=== PATIENT | female | born 1940 | race Caucasian/White ===

== ENCOUNTER 2017-01-19 02:27 | Inpatient (IN) | payer BC ==
--- NOTE | ~2017-01-19 | CN ---
Consultation Report [facility] [address] [place]. [address] NAME: JIM VARGAS : 38 STATUS : ADM IN PAT#: [id number] AGE: 76 ADM/REG DATE : 01/19/17 MR#: [id number] REPORT SERV DATE: 01/19/17 DICTATED BY: MAYCOL REYES DATE: 01/19/17 REPORT STATUS : Draft TRANSCRIBED BY: MODL DATE: 01/19/17 NEW CONSULT DATE OF CONSULTATION: HISTORY OF PRESENT ILLNESS: This is a 76-year-old female, who was transferred to [facility] from [facility] accepted by Cardiology for elevated troponin. There have been no reports of chest pain. Chief complaint coming in to [facility] was progressing confusion and weakness. The patient has a known history of dementia, CAD with stents, AAA with stent, renal artery stenosis with stent, carotid stenosis with stent, and known long-standing history of tobacco abuse. Reportedly, she lives at assisted living facility, and her baseline function is she has severe dementia unable to speak in complete sentences. Sometimes knows her family, sometimes does not. Only able to ambulate at the facility with assistance, does feed herself. Apparently, she had deterioration of her function secondary to weakness and increased confusion. She was brought to [facility]. There, they found elevated troponin and evidence of UTI. She has since been transferred here to [facility]. Also, she reportedly had episode of hypoxia in the emergency room at [facility]. EKGs have showed no evidence of ischemia, troponin initially 0.2 then went up to 0.4, then 0.8 is now trending down at 0.47. She was given some antibiotics at the [facility] emergency room for UTI. Currently, she is resting comfortably. She is confused. She is not in any form of distress but denies that she is hurting. She denies pain in her chest. PAST MEDICAL HISTORY: 1. About 4.3 cm AAA status post stent. 2. Anemia. 3. Coronary artery disease status post stent 2011. 4. Ischemic cardiomyopathy with EF of 30%. 5. Carotid stenosis status post stent and endarterectomy. 6. COPD. 7. Dementia. 8. Gastroenteritis. 9. Hyperlipidemia. 10.PAD. 11.Renal artery stenosis status post stent. 12.Tobacco abuse. SOCIAL HISTORY: Lives at assisted living facility. Extensive smoking history. No alcohol. FAMILY HISTORY: Of CAD. REVIEW OF SYSTEMS: Positive for weight loss of approximately 10 pounds over 6 months. Complains of nasal Consultation Report [facility] [address] [place]. [address] NAME: JIM VARGAS : 38 STATUS : ADM IN PAT#: [id number] AGE: 76 ADM/REG DATE : 01/19/17 MR#: [id number] REPORT SERV DATE: 01/19/17 DICTATED BY: MAYCOL REYES DATE: 01/19/17 REPORT STATUS : Draft TRANSCRIBED BY: JAQUI DATE: 01/19/17 congestion and cough. HOME MEDICATION: 1. Aspirin 81 mg p.o. daily. 2. Lipitor 40 mg p.o. daily. 3. Symbicort 100/4.5 inhaler 2 puffs b.i.d. 4. Aricept 10 mg p.o. at bedtime. 5. Lexapro 10 mg p.o. daily. 6. Prinivil 10 mg p.o. daily. PHYSICAL EXAMINATION: VITAL SIGNS: Blood pressure 144/67, heart rate 70, respirations 16, O2 saturation 92% on 2 L nasal cannula. Temperature 97.4. GENERAL EXAM: The patient is cooperative, no apparent distress, and awake. NEURO: Alert, confused. Moves all extremities spontaneously. Cranial nerves 2-12 grossly intact. NECK: No JVD. LUNGS: Clear to auscultation bilaterally. Normal respiratory effort. CARDIOVASCULAR: No murmurs auscultated. Regular rhythm. ABDOMEN: Soft, nontender. Active bowel sounds. EXTREMITIES: No edema. Normal distal pulses. LABS: Sodium 134, potassium 4.2, chloride 94, BUN 14, creatinine 0.84, glucose 77, calcium 9.1. White blood cell 9.9, hemoglobin 12.0, hematocrit 36.7, platelets 237, troponin 0.84 and 0.47. Chest x-ray; no acute findings. EKG; no ischemic changes. Normal sinus rhythm, with an increased QT interval. Echocardiogram ordered and pending. ASSESSMENT AND PLAN: 1. Urinary tract infection, currently on Rocephin. Urinalysis at [facility] did show evidence for UTI. We will repeat urinalysis here and culture. Continue Rocephin for now until we know results of urine culture. 2. Altered mental status with history of dementia. The patient has chronic dementia which has slowly been progressing, cognition level of a child per family, cannot speak in complete sentences, currently appears to be close to baseline with her mental status. Continue home Namenda. 3. Abnormal troponin, likely secondary to type 2 demand ischemia. No evidence of ischemic EKG changes, and troponins are trending down. Last one is 0.47. No chest pain reported but of course, the patient has severe dementia. Of note, Cardiology has ordered echocardiogram which is pending. 4. Coronary artery disease status post stent with ischemic cardiomyopathy with EF 30% at home on atorvastatin and aspirin. Here at the hospital, we have started Plavix and Consultation Report [address] [place]. [address] NAME: JIM VARGAS : 38 STATUS : ADM IN PAT#: [id number] AGE: 76 ADM/REG DATE : 01/19/17 MR#: [id number] REPORT SERV DATE: 01/19/17 DICTATED BY: MAYCOL REYES DATE: 01/19/17 REPORT STATUS : Draft TRANSCRIBED BY: JAQUI DATE: 01/19/17 continued her statin and aspirin as well as started her on beta romeo, and continued her on her home SAW inhibitor. 5. Chronic obstructive pulmonary disease. Chest x-ray negative for any acute findings. On exam, appears stable on her home Dulera. 6. Hypertension. Blood pressure is currently okay. Continue home blood pressure medicines. 7. DNR DNI. 8. QT prolongation. 9. Failure to thrive. Severe malnutrition. Weight loss. The patient has had a weight loss of approximately 10 pounds over the last 6 months. Performed a calorie count here at the hospital and provided the patient with Ensure t.i.d. 10.Cough and nasal congestion. The patient appeared to have little bit nasal congestion. We will add nasal corticosteroid spray. 11.Disposition. The patient from assisted living facility in [facility]. We will go ahead and get a PT and OT evaluation and evaluate her for return to assisted living versus retirement rehab. Of note, I spoke with Cardiology, Patricia Coreas, and we will be transferring attending primary to hospitalist as her issues appear to be UTI and failure to thrive related and not to any cardiac origin. TDR/MODL Maycol Reyes APN / [id number] CC: Nicky Baird Dr., M.D.
--- NOTE | ~2017-01-19 | DS ---
Discharge Summary [address] [place]. [address] NAME: JIM VARGAS : 38 STATUS : DIS IN PAT#: [id number] AGE: 76 ADM/REG DATE : 01/19/17 MR#: [id number] REPORT SERV DATE: 01/23/17 DICTATED BY: JASON CRYSTAL DATE: 01/22/17 REPORT STATUS : Draft TRANSCRIBED BY: MODL DATE: 01/22/17 ADMISSION DATE: 01/19/2017 DISCHARGE DATE: 01/22/2017 REASON FOR ADMISSION: Urinary tract infection. H and P, please refer to Dr. Stewart Velásquez's history and physical dated 01/19/2017 for complete details regarding the patient's admission. In brief, the patient was accepted as a direct admission by the Cardiology Service for a mildly elevated troponin. HOSPITAL COURSE: She had an uncomplicated hospital course. The patient had a mildly elevated troponin. Dr. Velásquez had accepted the patient and was admitted to the Cardiology Service. Upon further review, it was felt that the patient had a urinary tract infection causing a type 2 demand ischemia, and given her general internal medicine issues, the patient was transferred to the Hospitalist Service as Dr. Zhou had accepted her for transfer. She was already on IV antibiotics. Cardiology had started metoprolol and Lasix along with potassium chloride. Urine culture at this facility was negative, however, she has had already received antibiotics and we were unable to obtain the urine culture obtained at [facility]. Physical Therapy had evaluated the patient and recommended a SNF, and we had been working on getting her transferred to a SNF. Up until the day of discharge where her daughter said that they can do physical therapy at her [facility] and given her dementia and overall poor prognosis, her daughter felt that she would best be served by going back to her usual environment. The patient has reached maximal hospitalization and will be discharged today in stable condition back to [facility]. DISCHARGE DIAGNOSES: Acute sinusitis; urinary tract infection; ischemic cardiomyopathy with initially an ejection fraction of 30%, now preserved; chronic obstructive pulmonary disease without exacerbation; peripheral arterial disease; QT prolongation; progressing dementia likely Alzheimer's versus vascular; severe malnutrition; adult failure to thrive; no urosepsis; DO NOT RESUSCITATE, DO NOT INTUBATE. PROCEDURES: Include echocardiogram. DISCHARGE MEDICATIONS: Include aspirin 81 mg once a day, Lipitor 40 mg daily, Aricept 10 mg at bedtime, Lexapro 10 mg daily, lisinopril 10 mg daily, Lasix 20 mg daily, Lopressor 12.5 mg twice a day, potassium chloride 10 mEq daily, Symbicort two puffs twice a day, and Augmentin 875 mg twice a day for five more days. Spending over 30 minutes discharge planning and coordination of care. JOSE/JAQUI Jason Crystal MD Discharge Summary [address] [address] NAME: JIM VARGAS : 38 STATUS : DIS IN PAT#: [id number] AGE: 76 ADM/REG DATE : 01/19/17 MR#: [id number] REPORT SERV DATE: 01/23/17 DICTATED BY: JASON CRYSTAL DATE: 01/22/17 REPORT STATUS : Draft TRANSCRIBED BY: JAQUI DATE: 01/22/17 / [id number] CC: Jason Crystal MD
--- NOTE | ~2017-01-19 | HP ---
History And Physical [facility] [id number] [place]. [address] NAME: JIM VARGAS : 38 STATUS : [facility]M [facility]#: [id number] AGE: 76 ADM/REG DATE : 01/19/17 MR#: [id number] REPORT SERV DATE: 01/19/17 DICTATED BY: STEWART THIBODEAUX DATE: 01/19/17 REPORT STATUS : Draft TRANSCRIBED BY: MODL DATE: 01/19/17 DATE OF ADMISSION: 01/19/2017 ADMISSION REASON: Alter mental status and urinary tract infection. HISTORY OF PRESENT ILLNESS: Ms Vargas is a 76-year-old female with multiple medical problems including poly-vascular disease, vascular dementia, long-standing history of tobacco use, and is a [facility] facility resident due to progressive functional status decline, who presented to the [facility] Emergency Department for altered mental status. Per the daughter several days ago, she was able to ambulate and perform some ADLs with minimal assistance. She has had a rapid status change advisor the past 48 hours with altered mental status. She was arousable and denied having any chest pain or shortness of breath. Due to her progressive altered mental status, she was triaged [place] the [place] [facility] to the [facility] ER, where she was found to have a urinary tract infection, was given antibiotics, unknown which antibiotics due to lack of records at this time. She was noted to have some hypoxia in the setting of chronic COPD, and was given supplemental oxygen. Because of this, the troponin was checked which was mildly abnormal at 0.2 with her known history of coronary artery disease. This has trended up to 0.4 and 0.8. Recent updated ECG shows a QT prolongation with no ischemic changes. She is now resting on supplemental oxygen, and is arousable, but somnolent. She is somewhat diaphoretic appearing, but denies having any chest pain or shortness of breath. REVIEW OF SYSTEMS: No preceding complaints of palpitations, near syncope, orthopnea, or edema. PAST MEDICAL HISTORY: 1. CAD status post PCI. 2. Chronic systolic heart failure. 3. Ischemic cardiomyopathy, EF of 30%. 4. Sick sinus syndrome status post permanent pacemaker. 5. COPD. 6. Tobacco use history. 7. Peripheral atrial disease. 8. AAA status post stent. 9. Hypertension. 10.Hyperlipidemia. 11.History of cirrhosis. 12.Vascular dementia. CURRENT MEDICATIONS: 1. Lisinopril 10 mg daily. 2. Aspirin 81 mg daily. 3. Atorvastatin 40 mg q.h.s. 4. Symbicort as directed. 5. Albuterol inhaler as directed. 6. Lexapro 10 mg daily. History And Physical [address] [place]. [address] NAME: JIM VARGAS : 38 STATUS : ADM IN PAT#: [id number] AGE: 76 ADM/REG DATE : 01/19/17 MR#: [id number] REPORT SERV DATE: 01/19/17 DICTATED BY: STEWART THIBODEAUX DATE: 01/19/17 REPORT STATUS : Draft TRANSCRIBED BY: JAQUI DATE: 01/19/17 7. Aricept 10 mg q.h.s. ALLERGIES: INCLUDE CODEINE, WHICH CAUSES ITCHING; AND SHE HAS INTOLERANCE TO ALL BETA- BLOCKERS DUE TO ORTHOSTASIS AND DIZZINESS. FAMILY HISTORY: Significant for CAD. SOCIAL HISTORY: She is a [place] [facility] resident with a previous extensive tobacco use history. She does not consume alcohol. PHYSICAL EXAMINATION: VITALS: Temp 97.3, Pulse 80, Respirations 16, BP 130/60. GENERAL: Ill-appearing female with some diaphoresis and somnolence noted, but arousable and answers questions appropriately. HEENT: Sclerae anicteric, mucous membranes moist and without lesions. NECK: No jugular venous distention. No hepatojugular reflux, carotid upstrokes 2+ and symmetric, there are no carotid or subclavian bruit. LUNGS: Moderately decreased breath sounds throughout with no wheezes or crackles. CARDIOVASCULAR: Regular and distant with S1, S2. No audible S3 or S4. ABDOMEN: Soft, nontender. Bowel sounds are positive and normoactive. PULSES: Radial and dorsalis pedis pulses are all 1+ and somewhat diminished, but symmetric. EXTREMITIES: Warm and without significant edema. SKIN: No clubbing or cyanosis, no rashes or lesions. IMPRESSION: 1. Altered mental status. 2. Vascular dementia. 3. Urinary tract infection. 4. Urosepsis. 5. Coronary artery disease status post percutaneous coronary intervention. 6. Ischemic cardiomyopathy, EF of 30%. 7. Chronic systolic heart failure. 8. Chronic obstructive pulmonary disease. 9. Permanent pacemaker in situ. 10.Peripheral atrial disease. 11.History of abdominal aortic aneurysm status post repair. 12.Cirrhosis. 13.Chronic kidney disease. 14.QT prolongation, possibly medically related. PLAN: Ms Vargas has a poor prognosis. She is very frail with progressive functional decline with recent placement in a [place] [facility], who is now acutely ill with possible UTI and urosepsis. I recommended conservative medical management for demand ischemia with abnormal troponin. She will be given IV Lasix and IV antibiotics. We will await urine cultures. We will consult Internal Medicine for ongoing care. She is DNR/DNI. I had a long discussion with the family regarding poor prognosis and limited options for treatment. History And Physical [address] [place]. [address] NAME: JIM VARGAS : 38 STATUS : ADM [facility]#: [id number] AGE: 76 ADM/REG DATE : 01/19/17 MR#: [id number] REPORT SERV DATE: 01/19/17 DICTATED BY: STEWART THIBODEAUX. DATE: 01/19/17 REPORT STATUS : Draft TRANSCRIBED BY: JAQUI DATE: 01/19/17 TOMA/JAQUI Stewart Thibodeaux M.D. / [id number] CC: Stewart Thibodeaux M.D.
[~2017-01-19 02:27] MED LIST: APRES50 PO; ARICEPT10 PO; ASAB PO; BYSTOLIC10 MG PO; CAT1 PO; CAT2 PO; CEFT2 PO; CENTRUM PO; CENTRUM TAB1 TAB PO; CRESTOR5 MG PO; FERGON240 MG PO; FERROUS GLUCONATE PO; FLONASE NAS; FOSAMAX70 MG PO; GLUCOPHAGE1000 MG PO; HALF81 PO; KLOR-CON 1010 MEQ PO; L40 PO; LEVEMIR SC; LIPITOR40 PO; LISINOPRIL40 MG PO; LOP25 PO; METOPROLOL TART PO; MULTIPLE VIT PO; NEUR300 PO; NORCO1 TA1 PO; NORV10 PO; OS500+D PO; PLAVIX PO; PR25 PO; PRAVACHOL40 MG PO; PRIN10 PO; PRIN5 PO; PROTONIX PO; SMZ/TMP; SYMBICORT 160/41 INH INH; TRIAMCINOLON0.51 EX; VALTURN1 PO
[2017-01-19] MEDS ORDERED: LEXAPRO10 PO (03:41)
[2017-01-19] MEDS ORDERED: SYMBICORT 160/41 INH INH (03:42)
[2017-01-19 06:23] LABS: BASOPHILS 0.2 %; BASOPHILS ABSOLUTE 0.02 10/3/uL (0.0-0.16); EOSINOPHILS 0 %; IMMATURE GRANULOCYTES 0.5 %; IMMATURE GRANULOCYTES ABSOLUTE 0.05 10/3/uL (0.0-0.11); LYMPHOCYTES 7.5 %; LYMPHOCYTES ABSOLUTE 0.75 10/3/uL (0.67-4.30); MEAN PLATELET VOLUME 9.7 fL (9.2-13.0); MONOCYTES 7.7 %; MONOCYTES ABSOLUTE 0.77 10/3/uL (0.21-1.20); NEUTROPHILS 84.1 %; NEUTROPHILS ABSOLUTE 8.35 10/3/uL (2.02-8.40); RBC DISTRIBUTION WIDTH 14.3 % (12.0-16.0); RED CELL COUNT 4.18 10/6/uL (4.0-5.6); WHITE BLOOD CELLS 9.9 10/3/uL (4.5-10.5)
[2017-01-19 06:24] LABS: HEMATOCRIT 36.7 % (36.0-48.0); MANUAL DIFF NO %; MEAN CORPUS HGB CONC 32.7 g/dL (32.0-36.0); MEAN CORPUSCULAR HEMOGLOB 28.7 pg (26.0-34.0); MEAN CORPUSCULAR VOLUME 87.8 fL (80-100); PLATELET COUNT 237 10/3/uL (150-400)
[2017-01-19 06:46] LABS: BUN (BLOOD UREA NITROGEN) 14 MG/DL (6-23); CHLORIDE, SERUM 94 MMOL/L (96-112); CO2 (CARBON DIOXIDE) 28 MMOL/L (24-34); CREATININE 0.84 MG/DL (0.55-1.02); GFR AFRICAN AMERICAN 77 ML/MIN (>=60); GFR NON AFRICAN AMERICAN 67 ML/MIN (>=60); GLUCOSE, SERUM 100 MG/DL (60-99); POTASSIUM, SERUM 4.2 MMOL/L (3.5-5.3); SODIUM, SERUM 134 MMOL/L (135-148)
[2017-01-19 06:48] LABS: CALCIUM, SERUM 9.1 MG/DL (8.5-10.4)
[2017-01-19 06:49] LABS: TROPONIN I 0.84 NG/ML (<0.05)
[2017-01-19 16:20] LABS: ASCORBIC ACID (UR NOT ORDER) NEG (NEG); BILIRUBIN, URINE NEGATIVE (NEG); KETONE, URINE TRACE MG/DL (NEG); LEUKOCYTE ESTERASE(NOT OR SMALL (NEG); WBC (NOT ORDERED) (RFLEX) 28 (0-5)
[2017-01-20 05:23] LABS: BASOPHILS 0.3 %; BASOPHILS ABSOLUTE 0.02 10/3/uL (0.0-0.16); EOSINOPHILS ABSOLUTE 0.12 10/3/uL (0.0-0.53); HEMATOCRIT 33.9 % (36.0-48.0); HEMOGLOBIN 10.9 g/dL (12.0-16.0); IMMATURE GRANULOCYTES 0.2 %; IMMATURE GRANULOCYTES ABSOLUTE 0.01 10/3/uL (0.0-0.11); LYMPHOCYTES 12.3 %; LYMPHOCYTES ABSOLUTE 0.73 10/3/uL (0.67-4.30); MANUAL DIFF NO %; MEAN CORPUS HGB CONC 32.2 g/dL (32.0-36.0); MEAN CORPUSCULAR HEMOGLOB 28.5 pg (26.0-34.0); MEAN CORPUSCULAR VOLUME 88.5 fL (80-100); MEAN PLATELET VOLUME 9.2 fL (9.2-13.0); MONOCYTES 7.9 %; MONOCYTES ABSOLUTE 0.47 10/3/uL (0.21-1.20); NEUTROPHILS 77.3 %; PLATELET COUNT 218 10/3/uL (150-400); RBC DISTRIBUTION WIDTH 14.4 % (12.0-16.0); RED CELL COUNT 3.83 10/6/uL (4.0-5.6)
[2017-01-20 05:43] LABS: CALCIUM, SERUM 8.8 MG/DL (8.5-10.4); CHLORIDE, SERUM 100 MMOL/L (96-112); CO2 (CARBON DIOXIDE) 31 MMOL/L (24-34); CREATININE 0.81 MG/DL (0.55-1.02); GFR AFRICAN AMERICAN 81 ML/MIN (>=60); GFR NON AFRICAN AMERICAN 70 ML/MIN (>=60); GLUCOSE, SERUM 119 MG/DL (60-99); SODIUM, SERUM 137 MMOL/L (135-148)
[2017-01-20 05:46] LABS: BUN (BLOOD UREA NITROGEN) 21 MG/DL (6-23)
[2017-01-21 09:39] LABS: BASOPHILS 0.5 %; BASOPHILS ABSOLUTE 0.03 10/3/uL (0.0-0.16); EOSINOPHILS 1.4 %; EOSINOPHILS ABSOLUTE 0.08 10/3/uL (0.0-0.53); HEMOGLOBIN 12.4 g/dL (12.0-16.0); IMMATURE GRANULOCYTES 0.2 %; IMMATURE GRANULOCYTES ABSOLUTE 0.01 10/3/uL (0.0-0.11); LYMPHOCYTES 11.1 %; LYMPHOCYTES ABSOLUTE 0.64 10/3/uL (0.67-4.30); MEAN CORPUSCULAR HEMOGLOB 28.4 pg (26.0-34.0); MEAN CORPUSCULAR VOLUME 88.6 fL (80-100); MEAN PLATELET VOLUME 9.4 fL (9.2-13.0); MONOCYTES 6.2 %; MONOCYTES ABSOLUTE 0.36 10/3/uL (0.21-1.20); NEUTROPHILS 80.6 %; NEUTROPHILS ABSOLUTE 4.66 10/3/uL (2.02-8.40); PLATELET COUNT 277 10/3/uL (150-400); RBC DISTRIBUTION WIDTH 13.9 % (12.0-16.0); RED CELL COUNT 4.37 10/6/uL (4.0-5.6); WHITE BLOOD CELLS 5.8 10/3/uL (4.5-10.5)
[2017-01-21 09:40] LABS: HEMATOCRIT 38.7 % (36.0-48.0); MANUAL DIFF NO %
[2017-01-21 09:49] LABS: BUN (BLOOD UREA NITROGEN) 19 MG/DL (6-23); CALCIUM, SERUM 9.3 MG/DL (8.5-10.4); CHLORIDE, SERUM 98 MMOL/L (96-112); CO2 (CARBON DIOXIDE) 30 MMOL/L (24-34); CREATININE 0.85 MG/DL (0.55-1.02); GFR AFRICAN AMERICAN 76 ML/MIN (>=60); GFR NON AFRICAN AMERICAN 66 ML/MIN (>=60); GLUCOSE, SERUM 129 MG/DL (60-99); POTASSIUM, SERUM 3.6 MMOL/L (3.5-5.3); SODIUM, SERUM 136 MMOL/L (135-148)
[2017-01-22 07:01] LABS: BASOPHILS 0.3 %; BASOPHILS ABSOLUTE 0.02 10/3/uL (0.0-0.16); EOSINOPHILS 2.4 %; EOSINOPHILS ABSOLUTE 0.19 10/3/uL (0.0-0.53); HEMATOCRIT 35.4 % (36.0-48.0); HEMOGLOBIN 11.5 g/dL (12.0-16.0); IMMATURE GRANULOCYTES 0.4 %; IMMATURE GRANULOCYTES ABSOLUTE 0.03 10/3/uL (0.0-0.11); LYMPHOCYTES 5.8 %; LYMPHOCYTES ABSOLUTE 0.46 10/3/uL (0.67-4.30); MEAN CORPUS HGB CONC 32.5 g/dL (32.0-36.0); MEAN CORPUSCULAR HEMOGLOB 28.4 pg (26.0-34.0); MEAN CORPUSCULAR VOLUME 87.4 fL (80-100); MEAN PLATELET VOLUME 9.3 fL (9.2-13.0); MONOCYTES 8.2 %; MONOCYTES ABSOLUTE 0.65 10/3/uL (0.21-1.20); NEUTROPHILS 82.9 %; NEUTROPHILS ABSOLUTE 6.62 10/3/uL (2.02-8.40); PLATELET COUNT 266 10/3/uL (150-400); RBC DISTRIBUTION WIDTH 14.5 % (12.0-16.0); RED CELL COUNT 4.05 10/6/uL (4.0-5.6)
[2017-01-22 07:02] LABS: BUN (BLOOD UREA NITROGEN) 26 MG/DL (6-23); CALCIUM, SERUM 8.6 MG/DL (8.5-10.4); CHLORIDE, SERUM 97 MMOL/L (96-112); CO2 (CARBON DIOXIDE) 27 MMOL/L (24-34); CREATININE 0.79 MG/DL (0.55-1.02); GFR AFRICAN AMERICAN 83 ML/MIN (>=60); GFR NON AFRICAN AMERICAN 72 ML/MIN (>=60); GLUCOSE, SERUM 90 MG/DL (60-99); MANUAL DIFF NO %; POTASSIUM, SERUM 3.6 MMOL/L (3.5-5.3); SODIUM, SERUM 137 MMOL/L (135-148)
[2017-01-22] MEDS ORDERED: L20 PO (10:38)
[2017-01-22] MEDS ORDERED: LOP25 PO (10:40)
[2017-01-22] MEDS ORDERED: AUG875 PO (10:42)
[2017-01-22] MEDS ORDERED: KLOR-CON 1010 MEQ PO (10:42)
== END 2017-01-22 15:04 | disposition home or self-care (01) | DRG 689 ==
LOC: 7NO 02:27
PROVIDERS: Internal Medicine; Internal Medicine Cardiovascular Disease; Nurse Practitioner Family
DX: N39.0 Urinary tract infection, site not specified (principal); E43 Unspecified severe protein-calorie malnutrition; I50.22 Chronic systolic (congestive) heart failure; I24.8 Other forms of acute ischemic heart disease; I13.0 Hypertensive heart and chronic kidney disease with heart failure and stage 1 through stage 4 chronic kidney disease, or unspecified chronic kidney disease; J44.9 Chronic obstructive pulmonary disease, unspecified; G30.9 Alzheimer's disease, unspecified; F01.50 Vascular dementia, unspecified severity, without behavioral disturbance, psychotic disturbance, mood disturbance, and anxiety; Z68.1 Body mass index [BMI] 19.9 or less, adult; I25.10 Atherosclerotic heart disease of native coronary artery without angina pectoris; Z95.5 Presence of coronary angioplasty implant and graft; I25.5 Ischemic cardiomyopathy; Z95.0 Presence of cardiac pacemaker; R54 Age-related physical debility; N18.3 Chronic kidney disease, stage 3 (moderate); R62.7 Adult failure to thrive; J01.90 Acute sinusitis, unspecified; F02.80 Dementia in other diseases classified elsewhere, unspecified severity, without behavioral disturbance, psychotic disturbance, mood disturbance, and anxiety; Z66 Do not resuscitate
CPT/HCPCS: 71010; 80048; 81001; 82140; 83735; 84145; 84484; 85025; 87086; 93005; 94640; 97161-GP; 97165-GO; A9270-GY; C8929; J1580; J1652; Q9957